=== PATIENT | male | born 1960 | race African-American/Black ===

== ENCOUNTER 2016-07-12 12:48 | Inpatient (IN) | payer OTHER ==
[2016-07-12 14:23] VITALS: BMI 28.5
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
[2016-07-12] MEDS ORDERED: guaiFENesin/D-METHORPHAN HB 10 ML UNIT-DOSE CUPS PO PRN (16:53)
[2016-07-12] MEDS ORDERED: P-EPHED 60MG/TRIPROLIDI 2.5MG TABLET PO PRN (16:53)
[2016-07-12] MEDS ORDERED: hydrOXYzine PAMOATE 50 MG CAPSULE (FP) PO PRN (16:53)
[2016-07-12] MEDS ORDERED: MAG HYDROX/AL HYDROX/SIMETH 30 ML UNIT-DOSE CUP PO PRN (16:53)
[2016-07-12] MEDS ORDERED: MAGNESIUM HYDROX 2400MG/30ML ORAL SUSPENSION 30 ML CUP PO PRN (16:53)
[2016-07-12] MEDS ORDERED: MENTHOL/PHENOL 1 EACH UD MM PRN (16:53)
[2016-07-12] MEDS ORDERED: MAGNESIUM CITRATE 300 ML BOTTLE PO PRN (16:53)
[2016-07-12] MEDS ORDERED: chlordiazePOXIDE HCL 25 MG CAPSULE PO PRN (16:53)
[2016-07-12] MEDS ORDERED: LOPERAMIDE HCL 2 MG CAPSULE PO PRN (16:53)
[2016-07-12] MEDS: chlordiazePOXIDE HCL 25 MG CAPSULE PO SCH ×2 (19:04→22:39)
[2016-07-12] MEDS: ATORVASTATIN CA 20 MG TABLET (FP) PO SCH (22:39)
[2016-07-12] MEDS: THIAMINE HCL 100 MG TABLET (FP) PO SCH (22:39)
[2016-07-12] MEDS: CARVEDILOL 3.125 MG TABLET (FP) PO SCH (22:39)
[2016-07-12] MEDS: diphenhydrAMINE HCL 50 MG CAPSULE PO PRN (22:41)
[2016-07-12 23:12] LABS: URINE APPEARANCE CLEAR; URINE BILIRUBIN NEGATIVE (NEGATIVE); URINE BLOOD NEGATIVE (NEGATIVE); URINE COLOR STRAW; URINE GLUCOSE (UA) NEGATIVE (NEGATIVE); URINE KETONE NEGATIVE (NEGATIVE); URINE LEUK ESTERASE NEGATIVE (NEGATIVE); URINE NITRITE NEGATIVE (NEGATIVE); URINE PROTEIN NEGATIVE (NEGATIVE); URINE UROBILINOGEN NEGATIVE E.U./dl (0.2-1.0)
[2016-07-13] MEDS: IBUPROFEN 400 MG TABLET (FP) PO PRN ×2 (05:35→17:26)
[2016-07-13] MEDS: chlordiazePOXIDE HCL 25 MG CAPSULE PO SCH ×4 (05:36→22:48)
[2016-07-13 10:03] LABS: MCH 27.9 pg (25.7-33.7); MCHC 33.2 g/dl (32.0-35.9); MEAN CELL VOLUME 84.1 fl (80-96); MEAN PLT VOLUME 7.2 fl (7.5-11.1); PLATELET COUNT 336 K/MM3 (134-434); RDW 14.3 % (11.9-15.9); WHITE BLOOD COUNT 5.5 K/mm3 (4.0-10.0)
[2016-07-13] MEDS: CARVEDILOL 3.125 MG TABLET (FP) PO SCH ×2 (10:35→22:48)
[2016-07-13] MEDS: PRENATAL VITAMINS W/ FOLIC ACID TABLET (FP) PO SCH (10:35)
[2016-07-13 10:46] LABS: ALBUMIN 4.7 g/dl (3.4-5.0); ALK PHOS 83 U/L (45-117); ANION GAP 14 (8-16); BILIRUBIN,TOTAL 0.5 mg/dL (0.2-1.0); CALCIUM 9.4 mg/dL (8.5-10.1); CO2 23 mmol/L (21-32); CREATININE 0.9 mg/dL (0.7-1.3); GLUCOSE,RANDOM 142 mg/dL (74-106); SGOT/AST 31 U/L (15-37); SGPT/ALT 35 U/L (12-78); TOT PROT 8.5 g/dl (6.4-8.2)
--- NOTE | 2016-07-13 12:37 | PN ---
S CIWA - CIWA Score Nausea/Vomitin-No Nausea/No Vomiting Muscle Tremors: 4-Moderate,w/Arms Extend Anxiety: 3 Agitation: 2 Paroxysmal Sweats: 4-Forehead w/Sweat Beads Orientation: 4Disoriented Place/Person Tacttile Disturbances: 2-Mild Itch/Numbness/Burn Auditory Disturbances: 1-Very Mild Visual Disturbances: 0-None Headache: 0-None Present CIWA-Ar Total Score: 20 BHS Progress Note (SOAP) Subjective: Body Aches, Tremors, Interrupted sleep. Objective: PT. A & O X 2 (DISORIENTED ABOUT DAY / DATE). 07/13/16 12:35 Vital Signs Temperature 98.2 F 07/13/16 09:16 Pulse Rate 80 07/13/16 09:16 Respiratory Rate 18 07/13/16 09:16 Blood Pressure 116/83 07/13/16 09:16 O2 Sat by Pulse Oximetry (%) Laboratory Last Values WBC 5.5 K/mm3 (4.0-10.0) D 07/13/16 06:00 RBC 4.92 M/mm3 (4.00-5.60) 07/13/16 06:00 Hgb 13.7 GM/dL (11.7-16.9) 07/13/16 06:00 Hct 41.3 % (35.4-49) 07/13/16 06:00 MCV 84.1 fl (80-96) 07/13/16 06:00 MCHC 33.2 g/dl (32.0-35.9) 07/13/16 06:00 RDW 14.3 % (11.9-15.9) 07/13/16 06:00 Plt Count 336 K/MM3 (134-434) D 07/13/16 06:00 MPV 7.2 fl (7.5-11.1) L D 07/13/16 06:00 Sodium 136 mmol/L (136-145) 07/13/16 06:00 Potassium 4.0 mmol/L (3.5-5.1) 07/13/16 06:00 Chloride 99 mmol/L (98-107) 07/13/16 06:00 Carbon Dioxide 23 mmol/L (21-32) 07/13/16 06:00 Anion Gap 14 (8-16) 07/13/16 06:00 BUN 14 mg/dL (7-18) 07/13/16 06:00 Creatinine 0.9 mg/dL (0.7-1.3) 07/13/16 06:00 Creat Clearance w eGFR > 60 (>60) 07/13/16 06:00 Random Glucose 142 mg/dL (74-106) H D 07/13/16 06:00 Calcium 9.4 mg/dL (8.5-10.1) 07/13/16 06:00 Total Bilirubin 0.5 mg/dL (0.2-1.0) D 07/13/16 06:00 AST 31 U/L (15-37) D 07/13/16 06:00 ALT 35 U/L (12-78) D 07/13/16 06:00 Alkaline Phosphatase 83 U/L (45-117) D 07/13/16 06:00 Total Protein 8.5 g/dl (6.4-8.2) H 07/13/16 06:00 Albumin 4.7 g/dl (3.4-5.0) D 07/13/16 06:00 Urine Color Straw 07/12/16 23:00 Urine Appearance Clear 07/12/16 23:00 Urine pH 7.0 (5.0-8.0) 07/12/16 23:00 Ur Specific [place] 1.008 (1.001-1.035) 07/12/16 23:00 Urine Protein Negative (NEGATIVE) 07/12/16 23:00 Urine Glucose (UA) Negative (NEGATIVE) 07/12/16 23:00 Urine Ketones Negative (NEGATIVE) 07/12/16 23:00 Urine Blood Negative (NEGATIVE) 07/12/16 23:00 Urine Nitrite Negative (NEGATIVE) 07/12/16 23:00 Urine Bilirubin Negative (NEGATIVE) 07/12/16 23:00 Urine Urobilinogen Negative E.U./dl (0.2-1.0) 07/12/16 23:00 Ur Leukocyte Esterase Negative (NEGATIVE) 07/12/16 23:00 RPR Titer Nonreactive (NONREACTIVE) 07/13/16 06:00 LABS NOTED. Assessment: 07/13/16 12:36 WITHDRAWAL SYMPTOMS. Plan: CONTINUE DETOX. BGM ACBK TOMORROW FOR ELEVATED ADMISSION RANDOM GLUCOSE LEVEL. ADVISED PATIENT TO FOLLOW-UP WITH [facility] OPERATOR / REHAB MEDICAL PROVIDER AFTER DISCHARGE FROM DETOX FOR GENERAL MEDICAL ASSESSMENT AND FOR ANY ABNORMAL ADMISSION LAB VALUES.
--- NOTE | 2016-07-13 16:30 | EKG ---
Test Reason : Blood Pressure : / mmHG Vent. Rate : 092 BPM Atrial Rate : 092 BPM P-R Int : 184 ms QRS Dur : 104 ms QT Int : 404 ms P-R-T Axes : 052 044 062 degrees QTc Int : 499 ms NORMAL SINUS RHYTHM PROLONGED QT ABNORMAL ECG WHEN COMPARED WITH ECG OF 07-SEP-2008 18:28, T WAVE INVERSION NO LONGER EVIDENT IN ANTERIOR LEADS Confirmed by SHANICE HUNT MD ([id number]) on 07/13/2016 4:30:14 PM Referred By: Confirmed By:SHANICE HUNT MD
[2016-07-13] MEDS: ATORVASTATIN CA 20 MG TABLET (FP) PO SCH (22:48)
[2016-07-13] MEDS: THIAMINE HCL 100 MG TABLET (FP) PO SCH (22:48)
[2016-07-13] MEDS: diphenhydrAMINE HCL 50 MG CAPSULE PO PRN (22:49)
[2016-07-14] MEDS: IBUPROFEN 400 MG TABLET (FP) PO PRN (05:30)
[2016-07-14] MEDS: chlordiazePOXIDE HCL 25 MG CAPSULE PO SCH ×2 (05:31→11:24)
[2016-07-14] MEDS: PRENATAL VITAMINS W/ FOLIC ACID TABLET (FP) PO SCH (10:33)
[2016-07-14] MEDS: ACETAMINOPHEN 325 MG TABLET (FP) PO PRN (10:34)
--- NOTE | 2016-07-14 10:34 | PN ---
S CIWA - CIWA Score Nausea/Vomitin-No Nausea/No Vomiting Muscle Tremors: 4-Moderate,w/Arms Extend Anxiety: 4-Mod. Anxious/Guarded Agitation: 3 Paroxysmal Sweats: 3 Orientation: 0-Oriented Tacttile Disturbances: 0-None Auditory Disturbances: 0-None Visual Disturbances: 0-None Headache: 0-None Present CIWA-Ar Total Score: 14 BHS Progress Note (SOAP) Subjective: Sweating,interrupted sleep,restless Objective: 07/14/16 10:32 Vital Signs - 8 hr 07/14/16 07:11 Temperature 96.2 F L Pulse Rate 61 Respiratory 18 Rate Blood Pressure 128/76 Laboratory Tests 07/12/16 07/13/16 07/13/16 23:00 06:00 06:00 WBC 5.5 D RBC 4.92 Hgb 13.7 Hct 41.3 MCV 84.1 MCHC 33.2 RDW 14.3 Plt Count 336 D MPV 7.2 L D Sodium 136 Potassium 4.0 Chloride 99 Carbon Dioxide 23 Anion Gap 14 BUN 14 Creatinine 0.9 Creat Clearance w eGFR > 60 POC Glucometer Random Glucose 142 H D Calcium 9.4 Total Bilirubin 0.5 D AST 31 D ALT 35 D Alkaline Phosphatase 83 D Total Protein 8.5 H Albumin 4.7 D Urine Color Straw Urine Appearance Clear Urine pH 7.0 Ur Specific [place] 1.008 Urine Protein Negative Urine Glucose (UA) Negative Urine Ketones Negative Urine Blood Negative Urine Nitrite Negative Urine Bilirubin Negative Urine Urobilinogen Negative Ur Leukocyte Esterase Negative RPR Titer 07/13/16 07/14/16 06:00 06:20 WBC RBC Hgb Hct MCV MCHC RDW Plt Count MPV Sodium Potassium Chloride Carbon Dioxide Anion Gap BUN Creatinine Creat Clearance w eGFR POC Glucometer 167 Random Glucose Calcium Total Bilirubin AST ALT Alkaline Phosphatase Total Protein Albumin Urine Color Urine Appearance Urine pH Ur Specific [place] Urine Protein Urine Glucose (UA) Urine Ketones Urine Blood Urine Nitrite Urine Bilirubin Urine Urobilinogen Ur Leukocyte Esterase RPR Titer Nonreactive labs noted Assessment: 07/14/16 10:33 Withdrawal sx. Plan: Continue detox
[2016-07-14] MEDS: CARVEDILOL 3.125 MG TABLET (FP) PO SCH ×2 (11:18→22:24)
[2016-07-14] MEDS: chlordiazePOXIDE 5 MG CAPSULE PO SCH ×2 (17:26→22:24)
[2016-07-14] MEDS: ATORVASTATIN CA 20 MG TABLET (FP) PO SCH (22:24)
[2016-07-14] MEDS: THIAMINE HCL 100 MG TABLET (FP) PO SCH (22:25)
[2016-07-15] MEDS: diphenhydrAMINE HCL 50 MG CAPSULE PO PRN ×2 (01:22→22:36)
[2016-07-15] MEDS: ACETAMINOPHEN 325 MG TABLET (FP) PO PRN ×3 (01:22→17:29)
[2016-07-15] MEDS: chlordiazePOXIDE 5 MG CAPSULE PO SCH ×2 (05:21→10:08)
[2016-07-15] MEDS: IBUPROFEN 400 MG TABLET (FP) PO PRN ×2 (05:24→22:39)
[2016-07-15] MEDS: PRENATAL VITAMINS W/ FOLIC ACID TABLET (FP) PO SCH (10:08)
[2016-07-15] MEDS: CARVEDILOL 3.125 MG TABLET (FP) PO SCH ×2 (10:08→22:36)
--- NOTE | 2016-07-15 11:15 | PN ---
BHS Progress Note (SOAP) Subjective: Sweating,interrupted sleep,restless Objective: 07/15/16 11:14 Vital Signs - 8 hr 07/15/16 07/15/16 07/15/16 03:30 06:43 09:47 Temperature 96.4 F L 96.1 F L Pulse Rate 68 77 Respiratory 18 18 18 Rate Blood Pressure 147/95 124/82 Laboratory Tests 07/12/16 07/13/16 07/13/16 23:00 06:00 06:00 WBC 5.5 D RBC 4.92 Hgb 13.7 Hct 41.3 MCV 84.1 MCHC 33.2 RDW 14.3 Plt Count 336 D MPV 7.2 L D Sodium 136 Potassium 4.0 Chloride 99 Carbon Dioxide 23 Anion Gap 14 BUN 14 Creatinine 0.9 Creat Clearance w eGFR > 60 POC Glucometer Random Glucose 142 H D Calcium 9.4 Total Bilirubin 0.5 D AST 31 D ALT 35 D Alkaline Phosphatase 83 D Total Protein 8.5 H Albumin 4.7 D Urine Color Straw Urine Appearance Clear Urine pH 7.0 Ur Specific [place] 1.008 Urine Protein Negative Urine Glucose (UA) Negative Urine Ketones Negative Urine Blood Negative Urine Nitrite Negative Urine Bilirubin Negative Urine Urobilinogen Negative Ur Leukocyte Esterase Negative RPR Titer 07/13/16 07/14/16 07/15/16 06:00 06:20 05:22 WBC RBC Hgb Hct MCV MCHC RDW Plt Count MPV Sodium Potassium Chloride Carbon Dioxide Anion Gap BUN Creatinine Creat Clearance w eGFR POC Glucometer 167 105 Random Glucose Calcium Total Bilirubin AST ALT Alkaline Phosphatase Total Protein Albumin Urine Color Urine Appearance Urine pH Ur Specific [place] Urine Protein Urine Glucose (UA) Urine Ketones Urine Blood Urine Nitrite Urine Bilirubin Urine Urobilinogen Ur Leukocyte Esterase RPR Titer Nonreactive labs noted Assessment: 07/15/16 11:15 Withdrawal sx. Plan: Continue detox
[2016-07-15] MEDS: chlordiazePOXIDE HCL 10 MG CAPSULE PO SCH ×2 (17:28→22:36)
[2016-07-15] MEDS: ATORVASTATIN CA 20 MG TABLET (FP) PO SCH (22:36)
[2016-07-15] MEDS: THIAMINE HCL 100 MG TABLET (FP) PO SCH (22:36)
[2016-07-16] MEDS: diphenhydrAMINE HCL 50 MG CAPSULE PO PRN (01:12)
[2016-07-16] MEDS: chlordiazePOXIDE HCL 10 MG CAPSULE PO SCH (05:30)
[2016-07-16] MEDS: ACETAMINOPHEN 325 MG TABLET (FP) PO PRN (06:13)
[2016-07-16 06:47] VITALS: TEMP 96.5
[2016-07-16 09:33] VITALS: BP 134/87; PULSE 87
--- NOTE | 2016-07-16 10:40 | DS ---
[facility] Detox Discharge Summary Admission Date: 07/12/16 Discharge Date: 07/16/16 - History Present History: Alcohol Dependence Pertinent Past History: HTN AF Blindness left eye Asthma - Physical Exam Results Vital Signs: Vital Signs Temperature 96.5 F L 07/16/16 09:32 Pulse Rate 87 07/16/16 09:32 Respiratory Rate 18 07/16/16 09:32 Blood Pressure 134/87 07/16/16 09:32 O2 Sat by Pulse Oximetry (%) Pertinent Admission Physical Exam Findings: Withdrawal sx. Laboratory Last Values WBC 5.5 K/mm3 (4.0-10.0) D 07/13/16 06:00 RBC 4.92 M/mm3 (4.00-5.60) 07/13/16 06:00 Hgb 13.7 GM/dL (11.7-16.9) 07/13/16 06:00 Hct 41.3 % (35.4-49) 07/13/16 06:00 MCV 84.1 fl (80-96) 07/13/16 06:00 MCHC 33.2 g/dl (32.0-35.9) 07/13/16 06:00 RDW 14.3 % (11.9-15.9) 07/13/16 06:00 Plt Count 336 K/MM3 (134-434) D 07/13/16 06:00 MPV 7.2 fl (7.5-11.1) L D 07/13/16 06:00 Sodium 136 mmol/L (136-145) 07/13/16 06:00 Potassium 4.0 mmol/L (3.5-5.1) 07/13/16 06:00 Chloride 99 mmol/L (98-107) 07/13/16 06:00 Carbon Dioxide 23 mmol/L (21-32) 07/13/16 06:00 Anion Gap 14 (8-16) 07/13/16 06:00 BUN 14 mg/dL (7-18) 07/13/16 06:00 Creatinine 0.9 mg/dL (0.7-1.3) 07/13/16 06:00 Creat Clearance w eGFR > 60 (>60) 07/13/16 06:00 POC Glucometer 124 UNITS (()) 07/16/16 05:29 Random Glucose 142 mg/dL (74-106) H D 07/13/16 06:00 Calcium 9.4 mg/dL (8.5-10.1) 07/13/16 06:00 Total Bilirubin 0.5 mg/dL (0.2-1.0) D 07/13/16 06:00 AST 31 U/L (15-37) D 07/13/16 06:00 ALT 35 U/L (12-78) D 07/13/16 06:00 Alkaline Phosphatase 83 U/L (45-117) D 07/13/16 06:00 Total Protein 8.5 g/dl (6.4-8.2) H 07/13/16 06:00 Albumin 4.7 g/dl (3.4-5.0) D 07/13/16 06:00 Urine Color Straw 07/12/16 23:00 Urine Appearance Clear 07/12/16 23:00 Urine pH 7.0 (5.0-8.0) 07/12/16 23:00 Ur Specific [place] 1.008 (1.001-1.035) 07/12/16 23:00 Urine Protein Negative (NEGATIVE) 07/12/16 23:00 Urine Glucose (UA) Negative (NEGATIVE) 07/12/16 23:00 Urine Ketones Negative (NEGATIVE) 07/12/16 23:00 Urine Blood Negative (NEGATIVE) 07/12/16 23:00 Urine Nitrite Negative (NEGATIVE) 07/12/16 23:00 Urine Bilirubin Negative (NEGATIVE) 07/12/16 23:00 Urine Urobilinogen Negative E.U./dl (0.2-1.0) 07/12/16 23:00 Ur Leukocyte Esterase Negative (NEGATIVE) 07/12/16 23:00 RPR Titer Nonreactive (NONREACTIVE) 07/13/16 06:00 labs noted - Treatment Hospital Course: Detox Protocol Followed, Detoxed Safely, Responded well, Discharged Condition Good, Rehab Referral Accepted Patient has Accepted a Rehab Referral to: [facility] rehab - Medication Discharge Medications: Ambulatory Orders Atorvastatin Ca [Lipitor] 20 mg PO HS #30 tablet 01/29/13 Carvedilol [Coreg -] 3.125 mg PO BID 07/12/16 - Diagnosis (1) hypercholestrolemia Current Visit: Yes Status: Active (2) Essential hypertension Current Visit: Yes Status: Chronic (3) blindness of left eye Current Visit: Yes Status: Chronic (4) Alcohol dependence with uncomplicated withdrawal Current Visit: Yes Status: Acute - AMA Did Patient Leave Against Medical Advice: No
== END 2016-07-16 09:15 | disposition home or self-care (01) | DRG 775 ==
LOC: YASAS 12:48 → Y3N 16:31
PROVIDERS: ADMIT Internal Medicine; ATTEND Internal Medicine
PROC: HZ2ZZZZ Detoxification Services for Substance Abuse Treatment (ICD-10-PCS; principal; 2016-07-16)
DX: F10.230 Alcohol dependence with withdrawal, uncomplicated (principal); I10 Essential (primary) hypertension; E78.00 Pure hypercholesterolemia, unspecified; H54.42 Blindness, left eye, normal vision right eye
CPT/HCPCS: 36415; 80053; 81003; 85027; 86593; 93005; 93010